=== PATIENT | female | born 1935 | race Caucasian/White ===

== ENCOUNTER 2016-06-25 17:46 | Inpatient (IN) | payer OTHER ==
--- NOTE | ~2016-06-25 | EKG ---
PATIENT: ALCIRA RIZVI UNIT #: [id number] Ventricular Rate: 99 BPM Atrial Rate: 99 BPM P-R Interval: 162 ms QRS Duration: 64 ms Q-T Interval: 384 ms QTC Calculation(Bezet): 492 ms P Rochelle: 42 degrees Calculated R Rochelle: 0 degrees Calculated T Rochelle: 7 degrees Diagnosis Line: Normal sinus rhythm with sinus arrhythmia Diagnosis Line: Possible Inferior infarct , age undetermined Diagnosis Line: Abnormal ECG Diagnosis Line: When compared with ECG of 26-JUN-2016 12:07, Diagnosis Line: Sinus rhythm has replaced Atrial fibrillation Diagnosis Line: Vent. rate has decreased BY 91 BPM Diagnosis Line: Borderline criteria for Inferior infarct are now Diagnosis Line: Present Diagnosis Line: ST no longer depressed in Anterolateral leads Diagnosis Line: Nonspecific T wave abnormality no longer evident Diagnosis Line: in Anterolateral leads Diagnosis Line: Confirmed by ALEX VELASQUEZ MD ([id number]) on 06/30/2016 Diagnosis Line: 6:21:05 AM INTERPRETING MD: RON MACKEY
--- NOTE | ~2016-06-25 | CO ---
Unit #: [id number] #: [id number] Patient: ALCIRA RIZVI [id number] [address] [address] [id number] I MR#: [id number] NAME: ALCIRA RIZVI. ROOM: 326 Age: 80 Sex: F Admission Date: 06/25/2016 : 1935 Attending Physician: Willa Campos M.D. Primary Care Physician: Trevon Salvador M.D. Requesting Physician: Ginette Eddy M.D. CONSULTATION REPORT REASON FOR CONSULTATION Non-STEMI and irregular heart rate. HISTORY OF PRESENT ILLNESS 80-year-old female with past medical history of hypertension, diabetes, hyperlipidemia, uterine cancer status post hysterectomy, pelvic mass, ex-smoker, CKD stage 3, admitted with symptoms of shortness of breath and cough. She states that these symptoms have been ongoing for the last three weeks, have been progressive in nature. She also states on and off palpitations. She denies any syncope, denies any chest pain, denies any fever. She states overall her appetite has decreased and she feels fatigued. Her usual functional capacity at home is very restricted and limited with only using the restroom. She follows with (1) for lung nodule. She was admitted earlier also in 2016 with non-STEMI which was deemed to be type 2 due to CKD. Her LVEF was normal, 55% at that time. Currently today in the ER, the patient was noted to have tachycardia which was irregular in nature and was deemed atrial fibrillation at that time. Also, patient's lab work came positive for elevated troponins and, therefore, cardiology consultation was sought. PAST MEDICAL HISTORY 1. CKD stage 3. 2. Uterine cancer. 3. Lung nodule. 4. Hypertension. 5. Hyperlipidemia. 6. Diabetes. PAST SURGICAL HISTORY 1. Cystoscopy with right ureteral stent in 2017. 2. Total abdominal hysterectomy. 3. Cholecystectomy. 4. Eye surgery. SOCIAL HISTORY She lives alone. Patient's son comes almost on a regular basis to take care of her. She is a former smoker. She denies any alcohol or drug abuse. She is currently Full Code. She uses a cane to help ambulate. Unit #: [id number] #: [id number] Patient: ALCIRA RIZVI FAMILY HISTORY Positive for cancer in both parents. Her mother had breast cancer and father had throat cancer. ALLERGIES No known drug allergies. HOME MEDICATIONS 1. Lisinopril 10 mg p.o. t.i.d. 2. Aspirin 81 mg p.o. daily. 3. Bumex 2 mg p.o. daily. 4. Vitamin D 1000 units daily. REVIEW OF SYSTEMS GENERAL: Positive for fatigue and decrease in appetite. CARDIOVASCULAR: Positive for tachycardia. Denies any chest pain. RESPIRATORY: Positive for shortness of breath and cough. HEENT: Denies blurry vision or decreased hearing. ABDOMEN: Denies diarrhea or constipation. Positive for nausea. NEUROLOGICAL: Denies any headache or focal neurological deficit. PSYCH: Denies delusions or hallucinations. MUSCULOSKELETAL: Denies any joint pains or joint swelling. SKIN: Denies any rash. NECK: Denies any swelling in the neck. ENDOCRINE: Denies any episodes of low blood sugar though she does not use it. Denies any recent weight change. All other 14 point review of systems is negative. DIAGNOSTIC STUDIES CARDIOVASCULAR: ECG done on 12/26/2016 reveals SVT likely multifocal atrial tachycardia with definite P waves seen. No atrial fibrillation detected. Telemetry reviewed. Also shows patient to be in sinus tachycardia with PACs. IMAGING: Chest x-ray reveals right sided pleural effusion with 7.5 cm x 4.5 cm mass in the right paratracheal region. CT of the chest shows 9.4 x 3.6 x 8.4 cm mass. Bilateral pleural effusion. Atelectasis of the right lower lobe. LABORATORY: Glucose of 224, creatinine of 3.6 which has increased from 3.8. Sodium 137, potassium 3.9, chloride is 101, bicarb is 21, BUN is 23, albumin is 2.8, total protein 6.7, alkaline phos. of 217, lipase of 11 and LDH of 218. Troponin 0.18 x2. MB is 6.7. CK is 133. Lactic acid is 2.9. ASSESSMENT AND PLAN 80-year-old female with past medical history of hypertension, diabetes, hyperlipidemia, uterine cancer, now with shortness of breath and cough with right lung mass concerning for malignancy. 1. Non-ST elevation myocardial infarction, type 2: Likely secondary to Demand and elevated creatinine. Conservative management. Will get Unit #: [id number] #: [id number] Patient: ALCIRA RIZVI 2D echocardiogram for LV function. Aspirin 81 mg p.o. daily. Agree with beta blockade 25 mg p.o. b.i.d. No invasive strategies. 2. Irregular heart rate: ECG reviewed. Likely patient's ECG is concerning for multifocal atrial tachycardia secondary to respiratory/pulmonary etiology. Patient currently in sinus tachycardia with PACs after right sided thoracentesis. No anticoagulation. Beta blockade. 3. Hypertension: Discontinue lisinopril in face of increasing creatinine and acute kidney injury. Agree with beta blockade. Would consider hydrating patient. 4. Poor prognosis. Dictated by... Sherry Morales M.D. [place]/villa TD: 06/27/2016 06:51 JOB #: [id number] CONSULTATION REPORT Page 1 of 1 X SHERRY MORALES MD X CONSULTATION REPORT
--- NOTE | ~2016-06-25 | CR72 ---
[facility] A Service of [facility] RADIOLOGY TEXT RESULTS PATIENT: ALCIRA RIZVI LOCATION: [facility] 326-01 : 37 UNIT #: [id number] AGE: [address]: Willa Campos MD SEX: F ORDER DR: [id number] [facility] [address] [place], [place] [address] [id number] I MR#: [id number] Acc #: [id number] NAME: ALCIRA RIZVI : 1935 SEX: F STUDY DATE/TIME: 07/02/2016 12:46 UNIT: [address] ROOM: [facility] STUDY DESCRIPTION: CR Chest Single View Portable Attending Physician: Willa Campos M.D. Referring Physician: Trevon Salvador M.D. Ordering Physician: Mansi Gonzales M.D. Primary Care Physician: Trevon Salvador M.D. MEDICAL IMAGING REPORT This report is preliminary unless electronic signature is present EXAM Portable chest, 07/02/2016 HISTORY Shortness of air for 2 weeks. COMPARISON Chest 06/30/2016 FINDINGS Frontal chest demonstrates near-complete opacification of the right hemithorax. This may represent a large pleural effusion. Left lung clear. No pneumothorax. Heart size and mediastinum appears stable. IMPRESSION Near-complete opacification of the right hemithorax, significantly worse since previous exam from 06/30/2016. This may represent a recurrent large right pleural effusion. There is slight shift of the mediastinum to the left. No visible pneumothorax. Dictated by... Marek Bhatti M.D. THIS IS AN ELECTRONICALLY VERIFIED REPORT Marek Bhatti M.D. at 07/03/2016 8:45 AM Griffin TD: 07/02/2016 23:55 JOB #: [id number] MEDICAL IMAGING REPORT [facility] A Service [facility] RADIOLOGY TEXT RESULTS PATIENT: ALCIRA RIZVI LOCATION: [facility] 326-01 : 37 UNIT #: [id number] AGE: [address]: Willa Campos MD SEX: F ORDER DR: Page 1 of 1 COPY
--- NOTE | ~2016-06-25 | OR ---
Unit #: [id number] #: [id number] Patient: ALCIRA RIZVI [id number] [address] [address] [id number] I MR#: [id number] NAME: ALCIRA RIZVI. ROOM: [facility] Date of Procedure: 06/29/2016 Admission Date: 06/25/2016 Surgeon: Rodolfo Bagley M.D. : 1935 Attending Physician: Willa Campos M.D. Referring Physician: Trevon Salvador M.D. Primary Care Physician: Trevon Salvador M.D. PROCEDURE OPERATIVE NOTE PREOPERATIVE DIAGNOSIS Lung mass. POSTOPERATIVE DIAGNOSIS Lung mass. PROCEDURE PERFORMED Diagnostic bronchoscopy with bronchial washing and transbronchial biopsy via Jovel needle times six biopsies. FINDINGS 1. Scattered bloody mucus secretions, mainly of the sandra and the right main bronchus. 2. Generalized thickening in the mucosa on the right side, mainly in the right main bronchus, right upper lobe and partially in the right lower lobe, concerning for underlying malignancy. ANESTHESIA MAC sedation. PROCEDURE An informed consent was obtained from the patient herself after explaining the benefits and risks of this procedure. The procedure was done in endoscopy under MAC sedation. The patient was prepped and positioned in the appropriate way. Then her throat was numbed using lidocaine spray. Then the bronchoscope was advanced through the oral cavity and advanced through the vocal cord. Lidocaine 1% was instilled and the bronchoscope was advanced through the vocal cord into the trachea and immediately the patient was noted to have some scattered bloody secretion which was lavaged. Then below the sandra 1% lidocaine was instilled and then the bronchoscope was advanced into the right main bronchus, right upper lobe, right lower lobe and right middle lobe were examined, which appeared thickened, especially the mucosa and the right upper lobe and right main bronchus, concerning for underlying malignancy. The bronchoscope was wedged at the level of the right upper lobe and washing was obtained from that lobe, which will be sent for microbiology and cytology. The bronchoscope was retracted and then readvanced into the left main bronchus and the left upper lobe, lingula and left lower lobe were examined, which appeared normal with no endobronchial lesions or excessive secretions. The bronchoscope was retracted out again to the level of the sandra and then a Jovel needle was inserted and six different biopsies were obtained from the mass across the Unit #: [id number] #: [id number] Patient: ALCIRA RIZVI sandra and right main bronchus. The bronchoscope was retracted out then. The patient tolerated her procedure well with no immediate complications. COMPLICATIONS None. BLOOD LOSS Less than 10 ml. Dictated by... Katia Aguiar TD: 06/29/2016 14:59 JOB #: [id number] PROCEDURE OPERATIVE NOTE Page 1 of 1 X RODOLFO FRANKLIN MD X PROCEDURE OPERATIVE NOTE
--- NOTE | ~2016-06-25 | CT4 ---
[facility] A Service of [facility] RADIOLOGY TEXT RESULTS PATIENT: ALCIRA RIZVI LOCATION: [facility] 326- : 37 UNIT #: [id number] AGE: [address]: Willa Campos MD SEX: F ORDER DR: [id number] [facility] [address] [place], [place] [address] [id number] I MR#: [id number] Acc #: [id number] NAME: ALCIRA RIZVI. : 1935 SEX: F STUDY DATE/TIME: 06/25/2016 20:13 UNIT: A [facility] ROOM: [facility] STUDY DESCRIPTION: CT Abd and Pelv Wo Cont Attending Physician: Ginette Eddy M.D. Referring Physician: Trevon Salvador M.D. Ordering Physician: Ginette Eddy M.D. Primary Care Physician: Trevon Salvador M.D. MEDICAL IMAGING REPORT This report is preliminary unless electronic signature is present EXAM CT abdomen and pelvis, 06/25/2016 HISTORY Pain. Short of air 1 week, diarrhea x1 day, pain x1 day abdomen and pelvis, cough, middle of back pain. TECHNIQUE CT of the abdomen and pelvis performed without administration of oral or intravascular contrast. Comparison 10/19/2015. This CT exam was performed with one or more of the following radiation dose reduction techniques: automatic exposure control, adjustment of mA and/or kV according to patient size, and iterative reconstruction. FINDINGS Please see dedicated CT of the chest for discussion of marked abnormalities above the diaphragm. Liver unremarkable. Status post cholecystectomy. No biliary ductal dilatation. The spleen, pancreas, adrenal glands unremarkable. Generalized renal cortical thinning bilaterally. Chronic perinephric fat stranding. Interval placement of a right ureteral stent. Proximal pigtail in the distal right renal pelvis. Distal stent pigtail in urinary bladder. There is some stranding in the fat adjacent to the renal pelvis on the right. Likely chronic in nature. Previously seen moderate to marked hydronephrosis and ureteral distension to level of mid pelvis is now resolved. The previously described rim-calcified abnormality in the left mid pelvis at location of surgical clips and felt to be cause for ureteral obstruction on prior examination is not clearly identified on today's study. There is some soft tissue thickening in this region with loss of fat planes between the soft tissue, vascular structures and adjacent small bowel. Exact nature of the previously seen abnormality remains unclear. The patient is status post [facility]. [facility] A Service of [facility] RADIOLOGY TEXT RESULTS PATIENT: ALCIRA RIZVI LOCATION: [facility] 326-01 : 37 UNIT #: [id number] AGE: [address]: Willa Campos MD SEX: F ORDER DR: prior hysterectomy for what is described in patients history as malignancy of the uterine lining. Treated metastatic disease in the right parker pelvis could be considered. Resolution of postoperative hematoma/seroma could be considered. At this time there is no well-defined mass lesion or fluid collection. CT PELVIS: No inguinal adenopathy. Streak artifact from right hip arthroplasty. Status post hysterectomy. No fluid collections in the pelvis. No pelvic or retroperitoneal adenopathy. The distal esophagus and stomach notable for probable very small hiatal hernia. Remainder of visualized stomach and small bowel are unremarkable. Appendix not visualized. It may be surgically absent. The colon shows uncomplicated sigmoid diverticulosis. Evidence of prior anterior midline pelvic wall incision. Small right paracentral umbilical hernia containing only fat. Atherosclerotic arterial calcifications. Degenerative changes in spine. No acute-appearing abnormality. L1 vertebral body hemangioma. No aggressive-appearing bony abnormality. IMPRESSION 1. Please see today's dedicated CT of the chest for multiple significant abnormal findings above the diaphragm. 2. In the interval from 10/19/2015 the patient has undergone stenting of the right ureter. The proximal pigtail is in the distal renal pelvis and the distal pigtail is in the urinary bladder. There are some chronic inflammatory changes in the right perinephric fat actually decreased from prior study. There is some residual stranding in the right parapelvic renal fat. No residual hydronephrosis. 3. Generalized renal cortical thinning bilaterally as on prior study. 4. Nonobstructing approximately 2 mm calculus mid to lower pole right kidney slightly more conspicuous than on prior study. 5. The lesion apparently causing ureteral obstruction on the prior examination in the mid-right renal pelvis is not well demonstrated today. On prior study it appeared to have some rim calcifications not clearly seen today. There is some loss of tissues planes between the pelvic vascular structures, pelvic musculature and adjacent loop of small bowel at this location but no well-defined mass is seen. Etiology of the prior abnormality remains unclear. The sequence of findings could reflect resolution of postoperative change from prior hysterectomy or treated metastatic disease. Please correlate with the patient's interval history. 6. Status post hysterectomy. 7. Post cholecystectomy. 8. Small right paracentral umbilical hernia containing only fat. 9. No acute abnormality in the alimentary canal is suggested. Appendix not visualized. Uncomplicated sigmoid diverticulosis. 10. Right hip arthroplasty. No acute bony abnormalities. See above. Dictated by... [facility]. [facility] A Service of [facility] RADIOLOGY TEXT RESULTS PATIENT: ALCIRA RIZVI LOCATION: [facility] 326-01 : 37 UNIT #: [id number] AGE: [address]: Willa Campos MD SEX: F ORDER DR: Oj Robles M.D. THIS IS AN ELECTRONICALLY VERIFIED REPORT Oj Robles M.D. at 06/29/2016 12:40 PM ANDREW/reji TD: 06/26/2016 03:00 JOB #: [id number] MEDICAL IMAGING REPORT Page 1 of 1 COPY
--- NOTE | ~2016-06-25 | CR72 ---
[facility] A Service of [facility] RADIOLOGY TEXT RESULTS PATIENT: ALCIRA RIZVI LOCATION: [facility] 326-01 : 37 UNIT #: [id number] AGE: [address]: Willa Campos MD SEX: F ORDER DR: [id number] [facility] [address] [facility] [place], [place] [address] [id number] I MR#: [id number] Acc #: [id number] NAME: ALCIRA RIZVI. : 1935 SEX: F STUDY DATE/TIME: 06/29/2016 16:58 UNIT: [address] ROOM: [facility] STUDY DESCRIPTION: CR Chest Single View Portable Attending Physician: Willa Campos M.D. Referring Physician: Trevon Salvador M.D. Ordering Physician: Shell Bagley M.D. Primary Care Physician: Trevon Salvador M.D. MEDICAL IMAGING REPORT This report is preliminary unless electronic signature is present EXAM Portable chest HISTORY Status post right lung biopsy. COMPARISON 06/26/2016 FINDINGS Portable view of the chest demonstrates right-sided volume loss with opacity of the lower half of the right thorax may represent a combination of pleural effusion, atelectasis and/or infiltrate. Right hilar prominence probably represents the patient's underlying primary mass. The left lung remains clear. No visible pneumothorax. Heart size within normal limits. Mild aortic atherosclerotic change. Dictated by... Mariano Mckinley M.D. THIS IS AN ELECTRONICALLY VERIFIED REPORT Mariano Mckinley M.D. at 06/30/2016 6:35 PM URIEL/orion TD: 06/29/2016 21:48 JOB #: [id number] MEDICAL IMAGING REPORT Page 1 of 1 COPY
--- NOTE | ~2016-06-25 | HP ---
Unit #: [id number] #: [id number] Patient: ALCIRA RIZVI [id number] [facility] [address]. [place], [place] [address] [id number] I MR#: [id number] NAME: ALCIRA RIZVI. ROOM: 45666 Age: 80 Sex: F Admission Date: 06/25/2016 : 1935 Attending Physician: Ginette Eddy M.D. Referring Physician: Trevon Salvador M.D. Primary Care Physician: Trevon Salvador M.D. HISTORY AND PHYSICAL CHIEF COMPLAINT Short of air. HISTORY OF PRESENT ILLNESS The patient is a 80-year-old female with past medical history of chronic kidney disease, hypertension, hyperlipidemia, diabetes, uterine cancer, pelvic mass, right UPJ obstruction, lung nodule, who presented to the emergency room for evaluation of the above. Of note, the patient was hospitalized at [facility] October 14 through October 21, 2015 for generalized weakness. She had higmy-xp-pnphzjn kidney disease as well as pyelonephritis. During the course of her hospital stay she did have an elevated troponin and was seen by Cardiology who thought that it was secondary to kidney disease. Her ejection fraction on echocardiogram was noted to be 55%. No further workup was planned regarding the cardiac issues. Additionally Dr. Ambrosio of nephrology saw the patient. She underwent CT of the abdomen and pelvis that showed a possible pelvic mass and renal mass. She was seen in consultation by Urology (Dr. Toribio). She underwent cystoscopy with right ureteral stent placement. She was also seen in consultation by Dr. Jimenez regarding the pelvic mass and lung nodule. She per the discharge summary was told to follow up with Dr. Jimenez, Dr. Toribio and Dr. Bagley. The patient states that she saw Dr. Jimenez one time. She did not have a PET CT. She has also seen Dr. Toribio in followup. Per [facility] records she had cystoscopy with right stent change on April 14, 2016. She has also seen Dr. Bagley of nephrology. The patient states that she has had a one-week history of increasing shortness of breath and nonproductive cough. She denies any fever, no chest pain. She has had decreased appetite but no vomiting. She had loose stool today but no abdominal pain. She denies any urinary symptoms. Upon arrival in the emergency department the patient's temperature was 97.7, pulse 96, blood pressure 103/60, oxygen saturation was 97% on 3 L. A chest x-ray was done and showed a large mass involving the right lung. Laboratory is notable for BUN and creatinine of 75 and 2.8 respectively, bicarbonate is 13, anion gap 17, alkaline phosphatase 244, white blood cell count 28.3, lactic acid 2.2. She was given Rocephin and azithromycin in the emergency department. She is being admitted to [facility] for evaluation and further treatment. PAST MEDICAL HISTORY 1. Admission to [facility] October 14 through October Unit #: [id number] #: [id number] Patient: ALCIRA RIZVI M 2015 for rcduk-ti-irxquei kidney disease and other issues as discussed in HPI. Specifically the patient was noted to have a lung nodule as well as a pelvic mass with UPJ obstruction. She underwent right ureteral stent placement during that admission and has had stent change on April 14, 2016. 2. History of uterine cancer in 2000. She underwent total hysterectomy as well as radiation treatment. She did not have chemotherapy. 3. Lung nodule per CT of the chest dated October 17, 2015. The patient was noted to have a 1.3 x 1.1 cm indeterminate nodule in the right lung apex. Repeat chest CT in three months or PET CT was recommended. 4. History of pelvic mass (CT of the abdomen and pelvis October 19, 2015). The patient was noted to have an obstructing mass in the right hemipelvis with rim calcifications measuring 1.8 x 2.7 x 4.3 cm with jjxa-ha-asvhtfbh hydroureteronephrosis of the right kidney and ureter. This was favored to be sequelae of adhesions from prior salpingo-oophorectomy and chronic seroma or hematoma. 5. Chronic kidney disease, followed by Dr. Bagley, with a baseline creatinine of 1.6 per the discharge summary. 6. Hypertension. 7. Hyperlipidemia. 8. Diabetes. PAST SURGICAL HISTORY 1. Cystoscopy with right ureteral stent placement and recent stent change on April 14, 2016. 2. Total abdominal hysterectomy. 3. Eye surgery. 4. Cholecystectomy. SOCIAL HISTORY The patient lives alone. She is a former smoker. She states that she smoked from the time she was a teenager until the . She denies alcohol use. She walks with a cane. Her code status is a Full Code. FAMILY HISTORY Family history is notable for both parents having malignancy. Her mother had breast cancer. Her dad had throat cancer. ALLERGIES No known allergies. HOME MEDICATIONS 1. Lisinopril 10 mg daily. 2. Vitamin D 1000 units daily. 3. Aspirin 81 mg daily. 4. Bumex 2 mg daily. REVIEW OF SYSTEMS A complete review of systems is negative except as indicated in the HPI. The patient denies any urinary symptoms. She states that she has been taking her medications as prescribed but not today. She is not sure if she has had any change in her weight. She does not routinely check her blood sugars. DIAGNOSTIC STUDIES CARDIOVASCULAR: EKG shows sinus tachycardia with a rate of 105 beats per minute. Unit #: [id number] #: [id number] Patient: ALCIRA RIZVI IMAGING: Chest x-ray reviewed by me and shows a large mass in the right lung. There is also possible infiltrate in the right lower lobe and a pleural effusion. LABORATORY: Arterial blood gas shows pH of 7.236, pCO2 of 24.8, pO2 of 91 on 2 L. Troponin is less than 0.05. INR is 1.1. Lactic acid 2.2. Complete blood count notable for white blood cell count of 28.3, with 11% bands. Comprehensive metabolic panel notable for bicarb of 13, glucose 160, anion gap is 17, BUN and creatinine 75 and 2.8 respectively, AST and ALT 66 and 43 respectively, alkaline phosphatase 244, albumin is 3.2. BNP is 164. PHYSICAL EXAMINATION VITAL SIGNS: Temperature is 97.7. Pulse 96. Respirations 14. Blood pressure 103/60. Oxygen saturation is 97% on 3 L. GENERAL: The patient is a female who was awake and alert, in no acute distress. HEENT: The head is atraumatic. Mucous membranes are moist. NECK: Neck is supple. Trachea is midline. CARDIOVASCULAR: Regular rate and rhythm. LUNGS: Lungs are relatively clear to auscultation bilaterally. Breathing is mildly labored with conversation. ABDOMEN: Abdomen is soft, nontender, with bowel sounds present in all four quadrants. EXTREMITIES: Nontender with no pedal edema. NEUROLOGIC: The patient is awake and alert. She is oriented x3. She follows commands. PSYCHIATRIC: Mood and affect are normal. The patient is cooperative. SKIN: Skin is generally pale. ASSESSMENT The patient is a 80-year-old female with: 1. Lung mass concerning for malignancy. 2. Pneumonia, community acquired. Possible postobstructive pneumonia. 3. Right pleural effusion. 4. Sepsis, severe with a white blood cell count of 28.3 with 11% bands. Initial lactic acid 2.2. 5. Blkae-la-qpcuxre kidney disease. The patient's creatinine was 1.9 on April 14, 2016. It is 2.8 today. The patient does have a history of right UPJ obstruction and currently has a stent in place. 6. Anion gap metabolic acidosis with a bicarb of 13 and an anion gap of 17. 7. Transaminitis. 8. Hypertension. 9. Hypertension. 10. Hyperlipidemia. 11. Diabetes. 12. History of uterine cancer, status post hysterectomy and radiation treatment. 13. History of pelvic mass per CT of the abdomen and pelvis done October 19, 2015. 14. History of right ureteropelvic junction obstruction with ureteral stent changes in March of 2016. The patient has seen Dr. Toribio in the past. 15. Former smoker. PLAN 1. Admit to intermediate level. Unit #: [id number] #: [id number] Patient: ALCIRA RIZVI 2. Healthy heart consistent carb diet if passes bedside swallow. 3. N.p.o. after midnight for possible procedure. 4. Fall precautions. 5. Check CT of the chest, abdomen and pelvis without contrast for further evaluation of lung mass, ybhvq-ym-xwaqlmh kidney disease with history of pelvic mass and UPJ obstruction with current stent in place. 6. Consult Dr. Jimenez regarding lung mass concerning for malignancy. 7. Blood cultures x2. 8. Sputum culture and sensitivity. 9. Supplemental oxygen. 10. Procalcitonin level. 11. Rocephin and azithromycin for pneumonia pending further workup. 12. Consult Dr. Wallis regarding lung mass, pleural effusion and possible need for bronchoscopy. 13. Sepsis protocol with repeat lactic acid. 14. Check urinalysis with culture and sensitivity, 15. Bladder scan, check post-void residual. 16. Check CPK. 17. Bicarb drip to start now. 18. Repeat BMP later this evening to follow up anion gap metabolic acidosis. 19. Urine sodium, creatinine and eosinophils, 20. Strict Is and Os. 21. Consult Dr. Ambrosio regarding xpqrk-cy-kakzuvo kidney disease. 22. Hold nephrotoxic medications including lisinopril and Bumex. 23. Hemoglobin A1C. 24. Low-dose sliding-scale insulin with Accu-Cheks. 25. Serial cardiac enzymes. Repeat labs in the morning including magnesium and phosphorus. 26. SCDs for DVT prophylaxis. 27. Additional workup and consultants based on above. Regarding code status: The patient is a Full Code. Dictated by Ginette Eddy M.D. TIM/juliette TD: 06/25/2016 20:36 JOB #: [id number] HISTORY AND PHYSICAL Page 1 of 1 X Ginette Eddy MD HISTORY AND PHYSICAL
--- NOTE | ~2016-06-25 | CO ---
Unit #: [id number] #: [id number] Patient: ALCIRA RIZVI [id number] [address] [place], [place] [address] [id number] I MR#: [id number] NAME: ALCIRA RIZVI. ROOM: 326 Age: 80 Sex: F Admission Date: 06/25/2016 : 1935 Attending Physician: Willa Campos M.D. Primary Care Physician: Trevon Salvador M.D. CONSULTATION REPORT REASON FOR CONSULTATION Renal failure. HISTORY OF PRESENT ILLNESS The patient is a 80-year-old female with significant past medical history of chronic kidney disease stage 3, and mainly admitted to the hospital because of not feeling well, found to be somewhat hypotensive and started on IV fluids. The patient's blood pressure improved, and later blood pressure was running on the high side. The patient's echocardiogram did show ejection fraction of 55% last time, but also chest x-ray showed that the patient has a tumor. The patient likely has a significant lung mass in the right lung. Her creatinine that was 2.4 at the time of admission, slowly has increased to 3.8 this morning. The patient was extremely acidotic with bicarb level of 13 and she is on bicarbonate based fluids, which is helping and bicarbonate level is better. The patient's lactic acid level was high, which is slightly better this morning. The patient has no urine output overnight. Phosphorus level found to be extremely high at 6.8, and the patient's albumin level dropped. Repeat lactate level is 2.9. Procalcitonin level also found to be on the high side. When I saw the patient, she started getting some short of breath. PAST MEDICAL HISTORY Significant for acute on chronic kidney disease; also history of uterine cancer; history of lung nodule on a CT chest, now has a lung mass; history of pelvic mass in the past; and also had some hydronephrosis in the past; history of chronic kidney disease, baseline creatinine of 1.6; history of diabetes mellitus. PAST SURGICAL HISTORY Significant for recent cystoscopy with ureteral stent placement. SOCIAL HISTORY The patient lives alone. She is a former smoker. FAMILY HISTORY Significant for both parents having some kind of a cancer, likely father had throat cancer. HOME MEDICATIONS Include lisinopril and Bumex. REVIEW OF SYSTEMS Already explained in the history of present illness. Unit #: [id number] #: [id number] Patient: ALCIRA RIZVI DIAGNOSTIC STUDIES IMAGING STUDIES: Diagnostic studies and labs showed that the patient has a large mass in the right lung. Abdominal CAT scan did not show any acute problem, but there were no hydronephrosis or hydroureter. LABORATORY RESULTS: Labs showed creatinine has increased to 3.8. Bicarb was 13, it has improved to 20. Lactic acid level is still on the high side. PHYSICAL EXAMINATION GENERAL: The patient is an elderly female, seems somewhat short of breath. VITAL SIGNS: Blood pressure is 120/60, pulse is 96, respiratory rate 14, temperature 97.7. HEAD AND NECK: Pupils are reactive to light. Extraocular movements are intact. Mucous membrane moist. NECK: Supple. No JVD. CHEST: The patient has bilateral air entry with some crackles right greater than left. HEART: Regular rate and rhythm. No murmur. No gallop. ABDOMEN: Soft and nontender. EXTREMITIES: No clubbing, cyanosis, no edema. NEUROLOGIC: Grossly nonfocal. ASSESSMENT AND PLAN 1. Acute kidney injury. 2. Chronic kidney disease, stage 3. 3. Sepsis with increased lactic acid level. 4. Hypertension. 5. Diabetes mellitus. 6. New diagnosis of right lung mass. DISCUSSION At this time, the patient's acute kidney injury is likely related to hemodynamic instability in the presence of the ARBEN inhibitor and some volume depletion. I agree with IV fluid that was given overnight, but now the patient is more short of breath. May be developing some crackles in the lungs or pulmonary edema. IV fluid rate was decreased. Follow up with the urine studies. If the patient has significant acute tubular necrosis, the patient may need a renal replacement therapy at this time. Discussed with the patient in detail regarding that. Follow up with a repeat labs later today and tomorrow morning. Follow up with electrolytes closely. Thank you for letting me participate in taking care of this patient. Dictated byThiago. Calixto Ambrosio M.D. MERRY/shilo TD: 06/27/2016 05:08 JOB #: [id number] Unit #: [id number] #: [id number] Patient: ALCIRA RIZVI CONSULTATION REPORT Page 1 of 1 X Calixto Ambrosio MD CONSULTATION REPORT
--- NOTE | ~2016-06-25 | CO ---
Unit #: [id number] #: [id number] Patient: ALCIRA RIZVI [id number] [address] [address] [id number] I MR#: [id number] NAME: ALCIRA RIZVI. ROOM: 326 Age: 80 Sex: F Admission Date: 06/25/2016 : 1935 Attending Physician: Willa Campos M.D. Primary Care Physician: Trevon Salvador M.D. CONSULTATION REPORT REASON FOR CONSULTATION Lung mass and pleural effusion. CHIEF COMPLAINT Shortness of breath. HISTORY OF PRESENT ILLNESS A 80-year-old female with past medical history of chronic kidney disease, hypertension, dyslipidemia, diabetes, uterine cancer, pelvic mass, right ureteral stent, lung nodule who presented to the emergency room with a complaint of shortness of breath. CT chest showed effusion and a lung mass. I am seeing the patient at bedside currently in rapid atrial fibrillation, complaining of shortness of breath. REVIEW OF SYSTEMS Positive for shortness of breath. No edema. No cyanosis. No jaundice. The rest are per history of present illness. Denies any chest pain. PAST MEDICAL HISTORY As described above. SOCIAL HISTORY Ex-smoker. No alcohol. No drug abuse. FAMILY HISTORY Positive for malignancy, both parents. Her dad has throat cancer. Mother has breast cancer. PAST SURGICAL HISTORY 1. Cystoscopy. 2. Abdominal hysterectomy. 3. Eye surgery. 4. Cholecystectomy. MEDICATIONS 1. Lisinopril. 2. Vitamin. 3. Aspirin. 4. Bumex. PHYSICAL EXAMINATION VITAL SIGNS: Currently, her heart rate is 200, respirations 20, blood pressure is 153/83, temperature 97. NEUROLOGIC: Awake, alert, oriented. No neuro deficit. Unit #: [id number] #: [id number] Patient: ALCIRA RIZVI HEENT: PERRLA plus 1. NECK: Supple. No JVD. CHEST: Bilateral air entry. Bilateral mild rhonchi. GASTROINTESTINAL: Nontender, soft. Bowel sounds positive. EXTREMITIES: No edema. SKIN: No rash. No ulcer. LYMPHATIC: No lymphadenopathy. DIAGNOSTIC STUDIES LABORATORY: Her troponin is 0.18. Creatinine is 3.8. Her lactic acid is 2.9. Her white count is 32, hemoglobin 11, hematocrit 36, platelet count 275,000. IMAGING: CT chest has been reported as suprahilar upper right paramediastinal region mass. Malignant neoplasm is favored and right-sided pleural effusion as well. ASSESSMENT 1. Acute hypoxic respiratory failure. 2. Rapid atrial fibrillation. 3. Lung mass. 4. Underlying chronic obstructive pulmonary disease. 5. Ex-smoker. 6. Right-sided pleural effusion. PLAN At this point, plan is to continue patient on oxygen, bronchodilator, broad-spectrum IV antibiotics already started. Follow culture. Patient needs right-sided thoracentesis and once her cardiac status is stable, she definitely will need bronchoscopy with biopsy. Hopefully, cytology on the pleural fluid may show up something. Will discuss with the patient and family. Overall long-term prognosis is very poor. Will start her on IV steroids as well. Please see orders for detailed plan. I would like to thank Dr. Ginette Eddy for the kind consideration to involve me in taking care of this patient. Dictated by... Katia Velásquez TD: 06/26/2016 13:36 JOB #: [id number] CONSULTATION REPORT Page 1 of 1 X Rocio Wallis MD X CONSULTATION REPORT
--- NOTE | ~2016-06-25 | CR72 ---
[facility] A Service of [facility] RADIOLOGY TEXT RESULTS PATIENT: ALCIRA RIZVI LOCATION: [facility] 326-01 : 37 UNIT #: [id number] AGE: [address]: Willa Campos MD SEX: F ORDER DR: [id number] [facility] [address] [place], [place] [address] [id number] MR#: [id number] Acc #: [id number] NAME: ALCIRA RIZVI. : 1935 SEX: F STUDY DATE/TIME: 06/25/2016 17:59 UNIT: [facility] ROOM: STUDY DESCRIPTION: CR Chest Single View Portable Attending Physician: Dawit Mccormack D.O. Referring Physician: Trevon Salvador M.D. Ordering Physician: Dawit Mccormack D.O. Primary Care Physician: Trevon Salvador M.D. MEDICAL IMAGING REPORT This report is preliminary unless electronic signature is present EXAM Portable chest, 06/25/2016 HISTORY Chest pain and shortness of breath for 1 week worsening today. Benign essential hypertension. Smoking history for 20 years. FINDINGS The heart is normal in size. Compared with 10/17/2015, there has been interval development of a large right paratracheal mass measuring 7.5 cm x 4.6 cm highly suspicious for neoplasm. Correlation with chest CT with contrast is strongly recommended. There is poor inspiratory result and elevation of the right hemidiaphragm with infiltrate and/or atelectasis in the right lower lobe. Small right pleural effusion. Left lung is clear. IMPRESSION 1. Markedly abnormal examination demonstrating interval development of a 7.5 cm x 4.5-cm mass in the right paratracheal region compared with previous available chest radiograph 10/17/2015 highly concerning for neoplasm. Correlation with chest CT with contrast is strongly recommended. 2. Elevation right hemidiaphragm with infiltrate or atelectasis right lower lobe and small right pleural effusion. STAT * RESULT Dictated by... Omega Wahl M.D. THIS IS AN ELECTRONICALLY VERIFIED REPORT Omega Wahl M.D. at 06/26/2016 10:25 AM KRT/psc [facility] A Service of [facility] RADIOLOGY TEXT RESULTS PATIENT: ALCIRA RIZVI LOCATION: [place] [address]-01 : 37 UNIT #: [id number] AGE: [address]: Willa Campos MD SEX: F ORDER DR: TD: 06/25/2016 18:33 JOB #: [id number] MEDICAL IMAGING REPORT Page 1 of 1 COPY
--- NOTE | ~2016-06-25 | XA203 ---
[facility] A Service of [facility] & [facility] RADIOLOGY TEXT RESULTS PATIENT: ALCIRA RIZVI LOCATION: [facility] 326- : 37 UNIT #: [id number] AGE: [address]: Willa Campos MD SEX: F ORDER DR: [id number] [place] [id number] [facility] [place], [place] [address] [id number] I MR#: [id number] Acc #: [id number] NAME: ALCIRA RIZVI. : 1935 SEX: F STUDY DATE/TIME: 06/26/2016 14:15 UNIT: [address] ROOM: [facility] STUDY DESCRIPTION: XA Thoracentesis Attending Physician: Willa Campos M.D. Referring Physician: Trevon Salvador M.D. Ordering Physician: Rocio Wallis M.D. Primary Care Physician: Trevon Salvador M.D. MEDICAL IMAGING REPORT This report is preliminary unless electronic signature is present EXAM Ultrasound-guided thoracentesis. INDICATION Right pleural effusion. This was identified on the CT from June 25, 2016. PROCEDURE The risks, benefits and alternatives to the procedure were explained to the patient, and signed informed consent was obtained. The patient was placed in the upright position preliminary ultrasound was performed which demonstrated a large right pleural effusions. These images were permanently saved. The overlying skin was marked. Patient was prepped and draped in the usual sterile fashion. Time-out was performed as per protocol. Skin and subcutaneous tissues were anesthetized with buffered lidocaine. The [employer] catheter was advanced into the fluid with aspiration of bloody material. The catheter was hooked to suction tubing and there was evacuation of a total of 1300 mL of bloody material. The catheter was then removed and manual pressure was applied until hemostasis was obtained. IMPRESSION Technically successful ultrasound-guided thoracentesis with evacuation of 1300 mL of bloody material. Ultrasound was used during the procedure and permanent images were saved. Dictated by... Poonam Mendoza M.D. THIS IS AN ELECTRONICALLY VERIFIED REPORT Poonam Mendoza M.D. at 06/28/2016 12:21 PM AFF/cmm TD: 06/27/2016 10:33 [facility] A Service of [facility] & [facility] RADIOLOGY TEXT RESULTS PATIENT: ALCIRA RIZVI LOCATION: [facility] 326-01 : 37 UNIT #: [id number] AGE: [address]: Willa Campos MD SEX: F ORDER DR: JOB #: [id number] MEDICAL IMAGING REPORT Page 1 of 1 COPY
--- NOTE | ~2016-06-25 | EKG ---
PATIENT: ALCIRA RIZVI UNIT #: [id number] Ventricular Rate: 105 BPM Atrial Rate: 105 BPM P-R Interval: 164 ms QRS Duration: 68 ms Q-T Interval: 358 ms QTC Calculation(Bezet): 473 ms P Alma: 67 degrees Calculated R Al[place]: 5 degrees Calculated T Alma: 35 degrees Diagnosis Line: Sinus tachycardia Diagnosis Line: Cannot rule out Inferior infarct , age Diagnosis Line: undetermined Diagnosis Line: Pulmonary disease pattern Diagnosis Line: Abnormal ECG Diagnosis Line: When compared with ECG of 14-APR-2016 09:38, Diagnosis Line: Borderline criteria for Inferior infarct are now Diagnosis Line: Present Diagnosis Line: Nonspecific T wave abnormality has replaced Diagnosis Line: inverted T waves in Inferior leads Diagnosis Line: Confirmed by ALEX VELASQUEZ MD ([id number]) on 06/26/2016 Diagnosis Line: 10:41:23 PM INTERPRETING MD: RON MACKEY
--- NOTE | ~2016-06-25 | CR71 ---
[facility] A Service of [facility] & [facility] RADIOLOGY TEXT RESULTS PATIENT: ALCIRA RIZVI LOCATION: [facility] 326- : 37 UNIT #: [id number] AGE: [address]: Willa Campos MD SEX: F ORDER DR: [id number] [facility] [address] [facility]. [place], [place] [address] [id number] I MR#: [id number] Acc #: [id number] NAME: ALCIRA RIZVI. : 1935 SEX: F STUDY DATE/TIME: 06/26/2016 14:56 UNIT: [address] ROOM: [facility] STUDY DESCRIPTION: CR Chest Single View Attending Physician: Willa Campos M.D. Referring Physician: Trevon Salvador M.D. Ordering Physician: Poonam Mendoza M.D. Primary Care Physician: Trevon Salvador M.D. MEDICAL IMAGING REPORT This report is preliminary unless electronic signature is present EXAM Portable chest radiograph. INDICATION Evaluate for pneumothorax following right thoracentesis. FINDINGS Cardiomegaly is identified. This patient does have some persistent right pleural fluid but no pneumothorax is seen. There is thickening of the right paratracheal stripe which was also present on this patient's prior CT from June 25, 2016 and likely reflects an underlying mass lesion. There is some left basilar atelectasis. No pneumothorax is seen on the left. There is atherosclerotic involvement of the aorta. Overall lung volumes are diminished. Dictated by... Poonam Mendoza M.D. THIS IS AN ELECTRONICALLY VERIFIED REPORT Poonam Mendoza M.D. at 06/26/2016 5:09 PM AFF/tmw TD: 06/26/2016 17:01 JOB #: [id number] MEDICAL IMAGING REPORT Page 1 of 1 COPY
--- NOTE | ~2016-06-25 | CO ---
Unit #: [id number] #: [id number] Patient: ALCIRA RIZVI [id number] [address] [place], [place] [address] [id number] I MR#: [id number] NAME: ALCIRA RIZVI ROOM: 326 Age: 80 Sex: F Admission Date: 06/25/2016 : 1935 Attending Physician: Willa Campos M.D. Primary Care Physician: Trevon Salvador M.D. Requesting Physician: Trevon Salvador M.D. Consultation Date: 06/26/2016 CONSULTATION REPORT REASON FOR EVALUATION Patient with possible lung CA, please evaluate. HISTORY OF PRESENT ILLNESS This is a 80-year-old lady who we saw in October of last year. The consult is dictated on the chart. At that time, she had a pulmonary nodule 1.3 cm, and we had asked for her to come see us in the office which she did. That was October, and then we wanted a CT scan to be repeated in three months plus possible PET scan. The patient states that she was too ill to come. The daughter knew about the followup request in January of last year and did not come. She comes now with evidence of progressive disease. Today, on questioning she states that she has shortness of breath even at rest plus arthritis, joint pains, and cough. Patient has a long history of hypertension, diabetes, hyperlipidemia, and smoking. She presented to this facility with pulmonary nodule right apex and now has a very large mass with possible pneumonia and underlying mass in the same area. Today, on questioning she just increasing shortness of breath. PAST MEDICAL HISTORY 1. Uterine cancer many, many years ago, and has been in remission. 2. 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 Please see the chart for further details. FAMILY HISTORY Negative for cluster of cancers. SOCIAL HISTORY Currently, she is a reformed smoker. No alcohol usage. She has a supportive son and daughter. CHRONIC MEDICATIONS 1. Lisinopril. 2. Lasix. ALLERGIES No known allergies. REVIEW OF SYSTEMS Mainly tiredness, increasing shortness of breath, and cough. No dizziness, no chest pain, and no hemoptysis. Sputum production is high with yellow-greenish sputum. Appetite is poor. Weight is difficult to say, but she states she has lost some weight. Otherwise, six or eight systems were within normal limits. Unit #: [id number] #: [id number] Patient: ALCIRA RIZVI PHYSICAL EXAMINATION GENERAL: Looks older than stated age. LYMPHATICS: No supraclavicular, axillary, or groin nodes. LUNGS: Bilateral crackles and mild wheeze. CARDIOVASCULAR: Distant S1 and S2. ABDOMEN: Diffuse tenderness. CENTRAL NERVOUS SYSTEM: Grossly intact. PELVIC/BREASTS: Not performed. DIAGNOSTIC STUDIES LABORATORY: BUN 84, creatinine 3.1, glucose 266, sodium 139, potassium 3.8, chloride 102, and CO2 of 25. Pro time 12 and INR of 1.1. Hemoglobin 9.2, hematocrit 29, white count 17.2, and platelets 185,000. IMAGING: We went ahead and reviewed the CT of the chest with contrast and discussed the results with the patient. The daughter was not present. It is essentially a very complex study, but there is a right-sided suprahilar upper right viktoria-mediastinal region mass measuring 9.4 cm x 3.6 x 8.4, and there is a pleural effusion which appears to be significant on the right side. The left side is otherwise clear. IMPRESSION This 80-year-old lady with multisystem problems including chronic kidney disease 3 going towards chronic kidney disease 4 has a right upper lobe mass and a right-sided pleural effusion. She had a 1.3 cm nodule in October of last year and was lost to followup. PLAN Agree with tapping the fluid first for cytology, and if that is negative, then bronchoscopy and biopsy, and depending on the findings, proceed further. In the meantime, will monitor the kidney function closely and treat with Procrit if the hemoglobin goes significantly lower. Dictated by... Katia Camacho/iwona TD: 06/29/2016 20:25 JOB #: [id number] CONSULTATION REPORT Page 1 of 1 X Carlos Jimenez MD CONSULTATION REPORT
--- NOTE | ~2016-06-25 | DS ---
Unit #: [id number] #: [id number] Patient: ALCIRA RIZVI [id number] [address] [address] [id number] I MR#: [id number] NAME: ALCIRA RIZVI. ROOM: 326 Age: 80 Sex: F Admission Date: 06/25/2016 : 1935 Discharge Date: 07/03/2016 Attending Physician: Willa Campos M.D. Referring Physician: Trevon Salvador M.D. Primary Care Physician: Trevon Salvador M.D. DISCHARGE SUMMARY DISCHARGE DIAGNOSES 1. Nonsmall cell lung cancer stage IV, with pleural effusion. 2. Bilateral pleural effusions, status post thoracentesis, cytology negative. 3. Chronic obstructive pulmonary disease with exacerbation. 4. Atrial fibrillation with rapid ventricular rate. 5. Yeast urinary tract infection. 6. Acute kidney injury. 7. Chronic kidney disease stage 3. 8. Hypokalemia. 9. Hypertension. 10. Hypomagnesemia. 11. Moderate protein malnutrition. 12. Diabetes mellitus type 2, uncontrolled. 13. Postobstructive pneumonia, community acquired. 14. Transaminitis. 15. Anion gap metabolic acidosis. 16. History of uterine cancer, status post hysterectomy and radiation therapy. 17. History of pelvic mass in November 01. 18. Former smoker. CONSULTATIONS 1. Dr. Wallis. 2. Dr. Ambrosio. 3. Dr. Jimenez. PROCEDURES 1. Thoracentesis with 1.3 liters of fluid removed. 2. Bronchoscopy. DIAGNOSTIC STUDIES LABORATORY: Pleural fluid negative for infection. Glucose 127. ABG with pH of (1) , 56. Sodium 145, potassium 4.4, and creatinine 3.8. Vitamin B12 of 522. Cytology of the pleural fluid shows mesothelial cells and atypical cells highly suspicious for malignancy. IMAGING: Chest x-ray shows near complete opacification of the right hemithorax. CT scan of the chest shows right upper paramediastinal mass 9.4 cm, right lower lobe mass favored atelectasis, very large right pleural effusion present, mediastinal adenopathy present, and bilateral thinning of renal cortex present. ALLERGIES Unit #: [id number] #: [id number] Patient: ALCIRA RIZVI None. DISCHARGE MEDICATIONS 1. Lorazepam 0.5 mg sublingual solution q.4 p.r.n. anxiety. 2. Morphine concentration 10 mg-1.5 mL, 12 mg p.o. q.4 p.r.n. pain. HOSPITAL COURSE A 80-year-old admitted because of shortness of breath. Nonsmall cell lung cancer stage IV. Patient had bronchoscopy and thoracentesis which was highly suspicious for malignancy. The bronchoscopy showed atypical cells highly suspicious for malignancy. Patient was seen by Hematology and Pulmonary. Because of stage IV, patient has a very poor prognosis. Patient is Do Not Resuscitate, and the patient was made hospice today. Patient will be transferred to inpatient hospice. Acute hypoxic, hypercapnic respiratory failure secondary to pneumonia, COPD, and lung mass. Currently, she is very tachypneic. She did receive DuoNeb and antibiotics. Bilateral pleural effusions, very large on the right side. Patient had thoracentesis with 1.3 liters of fluid removed which showed atypical cells. Acute COPD with exacerbation. Started on IV Solu-Medrol and DuoNebs. Atrial fibrillation with rapid ventricular rate. Patient was seen by Cardiology. Patient received Lopressor and is currently rate controlled. Pneumonia, right-sided, obstructive. Patient received Rocephin and Zithromax. Acute kidney injury. Patient was seen by Nephrology. She did have metabolic acidosis and hyperkalemia on admission with anemia. Because of very poor prognosis and continued tachypnea, dyspnea, acute kidney injury, and atrial fibrillation, the family decided for hospice care. Currently, patient is being transferred to inpatient hospice. Time taken is 40 minutes. Dictated by... Katia Carroll TD: 07/03/2016 16:32 JOB #: [id number] CC: Katia Aguiar M.D. Khurram Nazeer, M.D. Subhash P. Sheth, M.D. Unit #: [id number] #: [id number] Patient: ALCIRA RIZVI DISCHARGE SUMMARY Page 1 of 1 X Willa Campos MD DISCHARGE SUMMARY
--- NOTE | ~2016-06-25 | XA203 ---
[facility] A Service of [facility] & [facility] RADIOLOGY TEXT RESULTS PATIENT: ALCIRA RIZVI LOCATION: [facility] 326- : 37 UNIT #: [id number] AGE: [address]: Willa Campos MD SEX: F ORDER DR: [id number] [facility] [address] [facility]. [place], [place] [address] [id number] I MR#: [id number] Acc #: [id number] NAME: ALCIRA RIZVI. : 1935 SEX: F STUDY DATE/TIME: 06/30/2016 13:03 UNIT: [address] ROOM: [facility] STUDY DESCRIPTION: XA Thoracentesis Attending Physician: Willa Campos M.D. Referring Physician: Trevon Salvador M.D. Ordering Physician: Shell Bagley M.D. Primary Care Physician: Trevon Salvador M.D. MEDICAL IMAGING REPORT This report is preliminary unless electronic signature is present EXAM Ultrasound-guided right thoracentesis 06/30/2016 HISTORY Right pleural PROCEDURE Using ultrasound guidance, a skin site was selected and marked, sterilely prepped and draped and locally anesthetized. Thoracentesis was performed with a Aricent Groupeh needle catheter and a total of 1.2 L of fluid removed, and there were no complications. IMPRESSION Successful ultrasound guided right thoracentesis with removal of 1.2 L of fluid without complication. Dictated by... Vish Patricia M.D. THIS IS AN ELECTRONICALLY VERIFIED REPORT Vish Patricia M.D. at 07/04/2016 3:59 PM TEV/psc TD: 07/02/2016 22:14 JOB #: [id number] MEDICAL IMAGING REPORT Page 1 of 1 COPY
--- NOTE | ~2016-06-25 | CR71 ---
[facility] A Service of [facility] & [facility] RADIOLOGY TEXT RESULTS PATIENT: ALCIRA RIZVI LOCATION: [facility] 326- : 37 UNIT #: [id number] AGE: [address]: Willa Campos MD SEX: F ORDER DR: [id number] [facility] [address] [facility]. [place], [place] [address] [id number] I MR#: [id number] Acc #: [id number] NAME: ALCIRA RIZVI. : 1935 SEX: F STUDY DATE/TIME: 06/30/2016 14:20 UNIT: [address] ROOM: [facility] STUDY DESCRIPTION: CR Chest Single View Attending Physician: Willa Campos M.D. Referring Physician: Trevon Salvador M.D. Ordering Physician: Vish Patricia M.D. Primary Care Physician: Trevon Salvador M.D. MEDICAL IMAGING REPORT This report is preliminary unless electronic signature is present EXAM AP portable chest 06/30/2016 (1420 hours) HISTORY Postprocedure chest x-ray following 1.2 L right thoracentesis. Chest mass. TECHNIQUE AP portable upright chest x-ray. FINDINGS There is no visible pneumothorax following right side thoracentesis procedure. Small right pleural effusion remains. Persistent infiltrate and atelectasis in the right lower lung. Left lung clear. Large mass centered on the right middle and superior mediastinum is again noted, best seen on recent chest CT. Heart size normal. IMPRESSION No pneumothorax following right thoracentesis. Dictated by... Butch Lau M.D. THIS IS AN ELECTRONICALLY VERIFIED REPORT Butch Lau M.D. at 06/30/2016 10:42 PM Satish TD: 06/30/2016 18:36 JOB #: [id number] MEDICAL IMAGING REPORT Page 1 of 1 COPY
--- NOTE | ~2016-06-25 | CT57 ---
[facility] A Service of [facility] & [facility] RADIOLOGY TEXT RESULTS PATIENT: ALCIRA RIZVI LOCATION: [facility] 326-01 : 37 UNIT #: [id number] AGE: [address]: Willa Campos MD SEX: F ORDER DR: [id number] [facility] [address] [place], [place] [address] [id number] I MR#: [id number] Acc #: [id number] NAME: ALCIRA RIZVI. : 1935 SEX: F STUDY DATE/TIME: 06/25/2016 20:13 UNIT: [address] ROOM: [facility] STUDY DESCRIPTION: CT Chest Wo Cont Attending Physician: Ginette Eddy M.D. Referring Physician: Trevon Salvador M.D. Ordering Physician: Dawit Mccormack D.O. Primary Care Physician: Trevon Salvador M.D. MEDICAL IMAGING REPORT This report is preliminary unless electronic signature is present EXAM CT chest, 06/25/2016 HISTORY Short of air for 1 week, diarrhea x1 day. Some abdomen and pelvis pain x1 day, cough ,middle of back pain. Prior history of kidney disease, hypertension, diabetes, hysterectomy, tube and ovary removed, eye, gallbladder. TECHNIQUE CT chest performed without administration of intravenous contrast. Study is somewhat limited in the absence of intravascular contrast. Comparison 10/17/2015. Please see today's dedicated CT abdomen and pelvis as well. This CT exam was performed with one or more of the following radiation dose reduction techniques: automatic exposure control, adjustment of mA and/or kV according to patient size, and iterative reconstruction. FINDINGS The thyroid is unremarkable. No axillary adenopathy. There are enlarged mediastinal nodes. There is a 1 cm short axis upper right paratracheal node. There are enlarged pretracheal nodes measuring up to 1.2 cm short axis. There is a confluent mass lesion along the right hilum suprahilar region and superior mediastinum which measures approximately 9.4 cm in AP dimension x 3.6 cm in transverse dimension x 8.4 cm in craniocaudal extent. Along its medial aspect tissues planes are lost between the mass and the superior vena cava. There is probable encasement of the right upper lobe bronchus. There is increased soft tissue at level of the lower lobe bronchus which I favor to be a combination of adenopathy and mass lesion. This is presumed neoplastic disease. Best further evaluated with bronchoscopy. Patchy and linear densities at the periphery of the mass, and in the right upper and middle lobes probably combination of STS. [facility] A Service of [facility] RADIOLOGY TEXT RESULTS PATIENT: ALCIRA RIZVI LOCATION: [facility] 326-01 : 37 UNIT #: [id number] AGE: [address]: Willa Campos MD SEX: F ORDER DR: postobstructive pneumonitis and atelectasis. Components of lymphangitic spread of malignancy could be considered. There is fluid in the major fissure. There is a large right pleural effusion extending to the apex. Malignant effusion is a consideration. There is volume loss in the right lower lobe likely predominately atelectatic in nature. I do not see an obstructing right lower lobe bronchial or peribronchial lesion. This is probably passive atelectasis on the basis of the large effusion. The left lung is well inflated. Calcified granuloma left lung base. No suspicious nodule. There is underlying centrilobular emphysema. The heart is normal in size. There are coronary artery calcifications. Visualized portions of the liver unremarkable. Status post cholecystectomy. Spleen, pancreas, adrenal glands unremarkable. Generalized thinning of the renal cortex bilaterally. Incompletely visualized right ureteral stent with proximal pigtail in region of the right renal pelvis. Some haziness and stranding in the right renal pelvic fat. See CT abdomen and pelvis for further assessment. There is a nonobstructing incompletely visualized 2-3 mm calculus in the anterior mid-right kidney. No upper abdominal adenopathy. Esophagus, stomach, visualized colon unremarkable. The bony structures show no clearly acute abnormality. L1 vertebral body hemangioma right paracentral vertebral body. Degenerative changes. IMPRESSION 1. Abnormal examination. Please see the complete dictation above for full details. There is a confluent soft tissue density mass lesion in the right hilar, suprahilar and upper right paramediastinal region measuring 9.4 cm in AP dimension x approximately 3.6 cm transversely x approximately 8.4 cm in craniocaudal extent. Malignant neoplasm is favored as etiology. It is best further evaluated with bronchoscopy. Contrast-enhanced CT examination would be useful for better anatomic delineation if the patient is a candidate for iodinated contrast material. The mass. bears a close relationship to hilar and mediastinal structures with loss of fat plane between the mass and superior vena cava, distal right main pulmonary artery, right upper lobe pulmonary artery, and there appears to be encasement of the right upper lobe bronchus with narrowing of the right upper lobe bronchus. In association with adenopathy, there is probably partial encasement of right middle and lower lobe bronchi. 2. Peripheral to the mass lesion there are areas of patchy ground-glass density and some coarse linear densities, probably a combination of postobstructive pneumonitis and atelectasis. Components of lymphangitic spread of malignancy not excluded. 3. Atelectasis in the right lower lobe favored to be passive atelectasis secondary to a very large right pleural effusion which extends to the apex. Malignant effusion is a consideration. This fluid does appear amenable to percutaneous sampling. 4. Mediastinal adenopathy. See hospital sales representative sizes and locations in body of report. 5. There is no clear indication of contralateral left hilar adenopathy. The left lung shows no acute pulmonary disease or suspicious nodule. [facility]. [facility] A Service of [facility] RADIOLOGY TEXT RESULTS PATIENT: ALCIRA RIZVI LOCATION: [facility] 326-01 : 37 UNIT #: [id number] AGE: [address]: Willa Campos MD SEX: F ORDER DR: There is underlying emphysema. 6. Thinning of the bilateral partially visualized renal cortex. There appears to be a ureteral stent on the right. Incompletely visualized with some adjacent inflammatory change next to the partially visualized right renal pelvis. See today's dedicated CT abdomen and pelvis for further assessment. Incompletely visualized 2-3 mm mid-right renal calculus. 7. No clear indication of metastatic disease in the upper abdomen. 8. Spinal degenerative changes but no acute-appearing bony abnormality. No aggressive osseous lesion suggested. Dictated by... Oj oRbles M.D. THIS IS AN ELECTRONICALLY VERIFIED REPORT Oj Robles M.D. at 06/29/2016 12:40 PM ANDREW/reji TD: 06/26/2016 01:57 JOB #: [id number] MEDICAL IMAGING REPORT Page 1 of 1 COPY
--- NOTE | ~2016-06-25 | EKG ---
PATIENT: ALCIRA RIZVI UNIT #: [id number] Ventricular Rate: 190 BPM Atrial Rate: 202 BPM QRS Duration: 62 ms Q-T Interval: 224 ms QTC Calculation(Bezet): 398 ms Calculated R [place]: 33 degrees Calculated T [place]: -125 degrees Diagnosis Line: Atrial fibrillation with rapid ventricular Diagnosis Line: response Diagnosis Line: Low voltage QRS Diagnosis Line: ST depression, consider subendocardial injury Diagnosis Line: Nonspecific T wave abnormality Diagnosis Line: Abnormal ECG Diagnosis Line: When compared with ECG of 25-JUN-2016 17:52, Diagnosis Line: (unconfirmed) Diagnosis Line: Significant changes have occurred Diagnosis Line: Confirmed by ALEX VELASQUEZ MD ([id number]) on 06/26/2016 Diagnosis Line: 11:03:07 PM INTERPRETING MD: RON MACKEY
--- NOTE | ~2016-06-25 | EKG ---
PATIENT: ALCIRA RIZVI UNIT #: [id number] Ventricular Rate: 93 BPM Atrial Rate: 93 BPM P-R Interval: 146 ms QRS Duration: 74 ms Q-T Interval: 432 ms QTC Calculation(Bezet): 537 ms P [place]: 54 degrees Calculated R [place]: 10 degrees Calculated T [place]: 4 degrees Diagnosis Line: Sinus rhythm with Premature atrial complexes with Diagnosis Line: Aberrant conduction Diagnosis Line: Prolonged QT Diagnosis Line: Abnormal ECG Diagnosis Line: When compared with ECG of 29-JUN-2016 17:12, Diagnosis Line: Aberrant conduction is now Present Diagnosis Line: Borderline criteria for Inferior infarct are no Diagnosis Line: longer Present Diagnosis Line: Confirmed by MARIBEL MACKEY, LUDIVINA ([id number]) on Diagnosis Line: 07/01/2016 4:46:44 PM INTERPRETING MD: SEVEN
[~2016-06-25 17:46] MED LIST: AVAPRO300 M1 PO; CARTIA PO; CRESTOR PO; LASIX PO; LISINOPRIL10 MG PO; LISINOPRIL30 MG PO; PIOGLITAZONE-M1 EAC1 PO; TRAMADOL HCL50 M1 PO
[2016-06-25 17:59] LABS: ARTERIAL BLD GAS O2 SATURATION 22.4 % (90.0-100.0); ARTERIAL BLOOD GAS CARBOXY HB 0.6 %sat (0.0-9.0); ARTERIAL BLOOD GAS HCO3 14.6 mmol/L; ARTERIAL BLOOD GAS MET HB 0.5 %sat (0.0-2.0); ARTERIAL BLOOD GAS PCO2 39.2 mmHg (35.0-45.0)
[2016-06-25 18:01] LABS: ARTERIAL BLOOD GAS PO2 18.5 mmHg (80.0-100)
[2016-06-25 18:02] LABS: ARTERIAL DRAW? NO
[2016-06-25 18:20] LABS: ARTERIAL BLD GAS O2 SATURATION 95.2 % (90.0-100.0); ARTERIAL BLOOD GAS CARBOXY HB 0.4 %sat (0.0-9.0); ARTERIAL BLOOD GAS HCO3 10.5 mmol/L; ARTERIAL BLOOD GAS MET HB 0.7 %sat (0.0-2.0); ARTERIAL BLOOD GAS PCO2 24.8 mmHg (35.0-45.0); ARTERIAL BLOOD GAS pH 7.236 (7.350-7.450)
[2016-06-25 18:21] LABS: ARTERIAL BLOOD GAS ALLEN TEST NORMAL; ARTERIAL BLOOD GAS ART SITE RIGHT RADIAL; ARTERIAL BLOOD GAS DELIVERY NASAL CANNULA; ARTERIAL DRAW? YES
[2016-06-25 18:27] LABS: BASOPHIL# 0.1 X10e3 (0-0.3); BASOPHIL% 0.3 % (0-2.5); EOSINOPHIL# 0.1 X10e3 (0-0.7); EOSINOPHIL% 0.4 % (0.0-7.0); HEMOGLOBIN 11.9 gm/dL (12.0-16.0); LYMPHOCYTE# 1.3 X10e3 (1.0-3.5); LYMPHOCYTE% 4.7 % (17.0-45.0); MEAN CELL VOLUME 92.3 FL (83-96); MEAN CORPUSCULAR HEMOGLOBIN 28.9 PG (28-34); MEAN CORPUSCULAR HGB CONC 31.3 g/dL (30-36); MEAN PLATELET VOLUME 8.6 FL (6.5-11.5); MONOCYTE# 2.7 X10e3 (0-1.0); MONOCYTE% 9.4 % (3.0-12.0); NEUTROPHIL# 24.1 X10e3 (1.5-7.1); NEUTROPHIL% 85.2 % (40-75); PLATELET COUNT 276 X10e3 (140-420); RED BLOOD COUNT 4.12 X10e (3.90-5.30); RED CELL DISTRIBUTION WIDTH 15.1 % (11.0-15.5); WHITE BLOOD COUNT 28.3 X10e3 (4.0-10.5)
[2016-06-25 18:30] LABS: DIFF IND YES
[2016-06-25 18:33] LABS: POC - CKMB 3.8 ng/mL (0.0-7.9); POC - TROPONIN <0.05 ng/mL (<=0.05)
[2016-06-25 18:39] LABS: INR 1.1; PARTIAL THROMBOPLASTIN TIME 28.1 SECONDS (23.5-31.3)
[2016-06-25 18:52] LABS: ANISOCYTOSIS SL; PLATELET ESTIMATE NORMAL (NORMAL); POLYCHROMASIA SL
[2016-06-25 18:53] LABS: POIKILOCYTOSIS SL; VACUOLIZATION MOD
[2016-06-25 18:54] LABS: ALBUMIN SERUM 3.2 g/dL (3.5-5.0); BILIRUBIN, DIRECT 0.1 mg/dL (0.0-0.2); BILIRUBIN,INDIRECT 0.6 mg/dL (0.0-0.9); BILIRUBIN,TOTAL 0.7 mg/dL (0.2-2.0); BUN/CREATININE RATIO 26.78; CALCIUM SERUM 8.9 mg/dL (8.4-10.2); CREATININE SERUM 2.8 mg/dL (0.6-1.4); GLOM FILT RATE Estimated 15.5 mL/min (>60); POTASSIUM 4.4 mmol/L (3.5-5.1); PROTEIN TOTAL SERUM 7.2 g/dL (6.0-8.3)
[2016-06-25] MEDS ORDERED: VITAMIN D1000 UNIT PO (19:33)
[2016-06-25] MEDS ORDERED: ASPIRIN81 MG PO (19:34)
[2016-06-25] MEDS ORDERED: BUMEX2 MG PO (19:34)
[2016-06-25 21:43] LABS: PROCALCITONIN 1.47 NG/ML
[2016-06-26 01:48] LABS: ALBUMIN SERUM 2.8 g/dL (3.5-5.0); BILIRUBIN,TOTAL 0.5 mg/dL (0.2-2.0); BUN/CREATININE RATIO 22.85; CALCIUM SERUM 8.6 mg/dL (8.4-10.2); CREATININE SERUM 3.5 mg/dL (0.6-1.4); GLOM FILT RATE Estimated 11.9 mL/min (>60); MAGNESIUM 1.8 mg/dL (1.6-3.0); PHOSPHOROUS 6.8 mg/dL (2.5-4.6); POTASSIUM 4.5 mmol/L (3.5-5.1); PROTEIN TOTAL SERUM 6.5 g/dL (6.0-8.3)
[2016-06-26 04:34] LABS: HEMATOCRIT 36.3 % (35.0-45.0); HEMOGLOBIN 11.2 gm/dL (12.0-16.0); MEAN CELL VOLUME 92.6 FL (83-96); MEAN CORPUSCULAR HEMOGLOBIN 28.6 PG (28-34); MEAN CORPUSCULAR HGB CONC 30.9 g/dL (30-36); MEAN PLATELET VOLUME 8.8 FL (6.5-11.5); RED BLOOD COUNT 3.92 X10e (3.90-5.30); RED CELL DISTRIBUTION WIDTH 14.9 % (11.0-15.5); WHITE BLOOD COUNT 32.6 X10e3 (4.0-10.5)
[2016-06-26 05:50] LABS: %MB 9.9 % (0.0-4.0); MB 6.7 ng/ml
[2016-06-26 07:19] LABS: BUN/CREATININE RATIO 20.78; CALCIUM SERUM 8.5 mg/dL (8.4-10.2); CREATININE SERUM 3.8 mg/dL (0.6-1.4); GLOM FILT RATE Estimated 10.7 mL/min (>60); POTASSIUM 4.1 mmol/L (3.5-5.1)
[2016-06-26 13:31] LABS: PROTEIN TOTAL SERUM 6.7 g/dL (6.0-8.3)
[2016-06-26 13:47] LABS: ARTERIAL BLD GAS O2 SATURATION 82.8 % (90.0-100.0); ARTERIAL BLOOD GAS CARBOXY HB 0.5 %sat (0.0-9.0); ARTERIAL BLOOD GAS HCO3 21.3 mmol/L; ARTERIAL BLOOD GAS MET HB 0.6 %sat (0.0-2.0); ARTERIAL BLOOD GAS PCO2 38.7 mmHg (35.0-45.0); ARTERIAL BLOOD GAS pH 7.349 (7.350-7.450)
[2016-06-26 13:48] LABS: ARTERIAL BLOOD GAS ALLEN TEST NORMAL; ARTERIAL BLOOD GAS ART SITE RIGHT RADIAL; ARTERIAL BLOOD GAS PO2 64.2 mmHg (80.0-100); ARTERIAL DRAW? YES
[2016-06-26 15:53] LABS: BF TOTAL NUCLEATED CELL COUNT 2333 CMM (0-100); BODY FLUID APPEARANCE BLOODY; BODY FLUID RBC 217630 CMM; BODY FLUID SOURCE PLEURAL
[2016-06-26 16:11] LABS: PROTEIN, BODY FLUID 4.5 gm/dL
[2016-06-26 18:14] LABS: BUN/CREATININE RATIO 23.33; CALCIUM SERUM 8.1 mg/dL (8.4-10.2); CREATININE SERUM 3.6 mg/dL (0.6-1.4); GLOM FILT RATE Estimated 11.5 mL/min (>60); POTASSIUM 3.9 mmol/L (3.5-5.1)
[2016-06-27 06:18] LABS: MEAN CELL VOLUME 90.5 FL (83-96); MEAN CORPUSCULAR HEMOGLOBIN 28.8 PG (28-34); MEAN CORPUSCULAR HGB CONC 31.8 g/dL (30-36); MEAN PLATELET VOLUME 8.9 FL (6.5-11.5); RED BLOOD COUNT 3.21 X10e (3.90-5.30); RED CELL DISTRIBUTION WIDTH 14.5 % (11.0-15.5); WHITE BLOOD COUNT 17.2 X10e3 (4.0-10.5)
[2016-06-27 06:52] LABS: ALBUMIN SERUM 2.2 g/dL (3.5-5.0); BILIRUBIN,TOTAL 0.5 mg/dL (0.2-2.0); BUN/CREATININE RATIO 27.09; CALCIUM SERUM 7.7 mg/dL (8.4-10.2); CREATININE SERUM 3.1 mg/dL (0.6-1.4); GLOM FILT RATE Estimated 13.7 mL/min (>60); MAGNESIUM 1.7 mg/dL (1.6-3.0); PHOSPHOROUS 5.7 mg/dL (2.5-4.6); POTASSIUM 3.8 mmol/L (3.5-5.1); PROTEIN TOTAL SERUM 5.3 g/dL (6.0-8.3)
[2016-06-27 07:01] LABS: URINE APPEARANCE TURBID; URINE BILIRUBIN NEG (NEG); URINE BLOOD 3+ (NEG); URINE COLOR YELLOW; URINE GLUCOSE NEG (NEG); URINE KETONE NEG (NEG); URINE LEUKOCYTE ESTERASE 3+ (NEG); URINE NITRATE NEG (NEG); URINE PROTEIN 2+ (NEG); URINE SPECIFIC GRAVITY 1.017 (1.003-1.035); URINE UROBILINOGEN 0.2 MG/DL (NEG)
[2016-06-27 07:03] LABS: CULTURE INDICATED? YES; URBCS1 AUWI 25-50 /[HPF] (0-2); URINE BACTERIA AUWI NEG (NEGATIVE); URINE SQUAMOUS EPITHELIAL CELL OCC /[HPF]; UWBCS1 AUWI 200-300 (0-5)
[2016-06-27 07:07] LABS: HEMOGLOBIN 9.2 gm/dL (12.0-16.0)
[2016-06-27 07:14] LABS: CREATININE,RANDOM URINE 156 mg/dL; SODIUM URINE RANDOM 23 mmol/L; TOTAL PROTEIN,RANDOM URINE 92 mg/dl (<10)
[2016-06-27 07:56] LABS: URINE YEAST PRESENT
[2016-06-27 07:59] LABS: URINE SOURCE CLEAN CATCH
[2016-06-28 06:32] LABS: HEMATOCRIT 30.7 % (35.0-45.0); MEAN CELL VOLUME 88.7 FL (83-96); MEAN CORPUSCULAR HEMOGLOBIN 28.8 PG (28-34); MEAN CORPUSCULAR HGB CONC 32.5 g/dL (30-36); MEAN PLATELET VOLUME 8.6 FL (6.5-11.5); RED BLOOD COUNT 3.47 X10e (3.90-5.30); RED CELL DISTRIBUTION WIDTH 14.7 % (11.0-15.5); WHITE BLOOD COUNT 22.9 X10e3 (4.0-10.5)
[2016-06-28 07:56] LABS: ALBUMIN SERUM 2.3 g/dL (3.5-5.0); BILIRUBIN,TOTAL 0.4 mg/dL (0.2-2.0); BUN/CREATININE RATIO 34.78; CALCIUM SERUM 7.7 mg/dL (8.4-10.2); CREATININE SERUM 2.3 mg/dL (0.6-1.4); GLOM FILT RATE Estimated 19.7 mL/min (>60); MAGNESIUM 1.5 mg/dL (1.6-3.0); POTASSIUM 3.2 mmol/L (3.5-5.1); PROTEIN TOTAL SERUM 5.6 g/dL (6.0-8.3)
[2016-06-29 06:12] LABS: HEMATOCRIT 32.7 % (35.0-45.0); HEMOGLOBIN 10.3 gm/dL (12.0-16.0); MEAN CELL VOLUME 91.2 FL (83-96); MEAN CORPUSCULAR HEMOGLOBIN 28.8 PG (28-34); MEAN CORPUSCULAR HGB CONC 31.5 g/dL (30-36); MEAN PLATELET VOLUME 8.6 FL (6.5-11.5); RED BLOOD COUNT 3.59 X10e (3.90-5.30); RED CELL DISTRIBUTION WIDTH 14.5 % (11.0-15.5)
[2016-06-29 06:47] LABS: ALBUMIN SERUM 2.7 g/dL (3.5-5.0); BILIRUBIN,TOTAL 0.5 mg/dL (0.2-2.0); CALCIUM SERUM 8.3 mg/dL (8.4-10.2); CREATININE SERUM 2.2 mg/dL (0.6-1.4); GLOM FILT RATE Estimated 20.8 mL/min (>60); POTASSIUM 3.5 mmol/L (3.5-5.1)
[2016-06-29 18:43] LABS: BUN/CREATININE RATIO 36.08; CALCIUM SERUM 8.5 mg/dL (8.4-10.2); CREATININE SERUM 2.3 mg/dL (0.6-1.4); GLOM FILT RATE Estimated 19.7 mL/min (>60); POTASSIUM 3.9 mmol/L (3.5-5.1)
[2016-06-29 23:16] LABS: MAGNESIUM 2.4 mg/dL (1.6-3.0)
[2016-06-30 06:22] LABS: HEMATOCRIT 30.8 % (35.0-45.0); HEMOGLOBIN 9.6 gm/dL (12.0-16.0); MEAN CELL VOLUME 91.8 FL (83-96); MEAN CORPUSCULAR HEMOGLOBIN 28.6 PG (28-34); MEAN CORPUSCULAR HGB CONC 31.1 g/dL (30-36); MEAN PLATELET VOLUME 9.5 FL (6.5-11.5); RED BLOOD COUNT 3.35 X10e (3.90-5.30); RED CELL DISTRIBUTION WIDTH 14.9 % (11.0-15.5); WHITE BLOOD COUNT 34.4 X10e3 (4.0-10.5)
[2016-06-30 06:35] LABS: BUN/CREATININE RATIO 30.71; CALCIUM SERUM 8.6 mg/dL (8.4-10.2); CREATININE SERUM 2.8 mg/dL (0.6-1.4); GLOM FILT RATE Estimated 15.5 mL/min (>60); MAGNESIUM 2.2 mg/dL (1.6-3.0); POTASSIUM 4.1 mmol/L (3.5-5.1)
[2016-06-30 10:57] LABS: INR 1.3; PARTIAL THROMBOPLASTIN TIME 22.6 SECONDS (23.5-31.3); PROTHROMBIN TIME (PATIENT) 13.4 SECONDS (9.6-11.5)
[2016-07-01 07:26] LABS: HEMATOCRIT 30.4 % (35.0-45.0); HEMOGLOBIN 9.3 gm/dL (12.0-16.0); MEAN CELL VOLUME 92.1 FL (83-96); MEAN CORPUSCULAR HEMOGLOBIN 28.2 PG (28-34); MEAN CORPUSCULAR HGB CONC 30.6 g/dL (30-36); MEAN PLATELET VOLUME 9.2 FL (6.5-11.5); RED BLOOD COUNT 3.31 X10e (3.90-5.30); RED CELL DISTRIBUTION WIDTH 14.7 % (11.0-15.5); WHITE BLOOD COUNT 46.1 X10e3 (4.0-10.5)
[2016-07-01 08:21] LABS: ALBUMIN SERUM 2.5 g/dL (3.5-5.0); CALCIUM SERUM 8.8 mg/dL (8.4-10.2); CREATININE SERUM 3.5 mg/dL (0.6-1.4); GLOM FILT RATE Estimated 11.9 mL/min (>60); POTASSIUM 4.8 mmol/L (3.5-5.1); PROTEIN TOTAL SERUM 5.1 g/dL (6.0-8.3)
[2016-07-01 08:22] LABS: BUN/CREATININE RATIO 30.57
[2016-07-02 09:40] LABS: BASOPHIL# 0.1 X10e3 (0-0.3); BASOPHIL% 0.1 % (0-2.5); EOSINOPHIL# 0.1 X10e3 (0-0.7); EOSINOPHIL% 0.2 % (0.0-7.0); HEMATOCRIT 28.6 % (35.0-45.0); HEMOGLOBIN 8.8 gm/dL (12.0-16.0); LYMPHOCYTE# 0.9 X10e3 (1.0-3.5); LYMPHOCYTE% 1.5 % (17.0-45.0); MEAN CELL VOLUME 91.8 FL (83-96); MEAN CORPUSCULAR HEMOGLOBIN 28.2 PG (28-34); MEAN CORPUSCULAR HGB CONC 30.7 g/dL (30-36); MEAN PLATELET VOLUME 10.3 FL (6.5-11.5); MONOCYTE% 5.2 % (3.0-12.0); NEUTROPHIL# 53.8 X10e3 (1.5-7.1); PLATELET COUNT 127 X10e3 (140-420); RED BLOOD COUNT 3.12 X10e (3.90-5.30); RED CELL DISTRIBUTION WIDTH 15.2 % (11.0-15.5)
[2016-07-02 09:43] LABS: DIFF IND YES; WHITE BLOOD COUNT 57.9 X10e3 (4.0-10.5)
[2016-07-02 09:59] LABS: ANISOCYTOSIS SL; HYPOCHROMIA MOD; PLATELET ESTIMATE NORMAL (NORMAL)
[2016-07-02 10:00] LABS: STOMATOCYTE PRESENT
[2016-07-02 10:23] LABS: FERRITIN 228 ng/mL (11-307)
[2016-07-02 10:37] LABS: ALBUMIN SERUM 3.6 g/dL (3.5-5.0); BILIRUBIN,TOTAL 1.1 mg/dL (0.2-2.0); CALCIUM SERUM 9.1 mg/dL (8.4-10.2); CREATININE SERUM 3.8 mg/dL (0.6-1.4); GLOM FILT RATE Estimated 10.7 mL/min (>60); POTASSIUM 4.4 mmol/L (3.5-5.1); PROTEIN TOTAL SERUM 5.8 g/dL (6.0-8.3)
[2016-07-02 10:38] LABS: BUN/CREATININE RATIO 32.36
[2016-07-02 12:39] LABS: ARTERIAL BLD GAS O2 SATURATION 85.4 % (90.0-100.0); ARTERIAL BLOOD GAS CARBOXY HB 0.8 %sat (0.0-9.0); ARTERIAL BLOOD GAS HCO3 30.1 mmol/L; ARTERIAL BLOOD GAS MET HB 0.6 %sat (0.0-2.0); ARTERIAL BLOOD GAS PCO2 45.6 mmHg (35.0-45.0); ARTERIAL BLOOD GAS pH 7.428 (7.350-7.450)
[2016-07-02 12:40] LABS: ARTERIAL BLOOD GAS ALLEN TEST N; ARTERIAL BLOOD GAS ART SITE RIGHT RADIAL; ARTERIAL BLOOD GAS PO2 56.1 mmHg (80.0-100); ARTERIAL DRAW? YES
[2016-07-02 12:41] LABS: ARTERIAL BLOOD GAS DELIVERY VENTURI MASK
== END 2016-07-03 16:25 | disposition other institution (70) | DRG 853 ==
LOC: CED 17:46 → CEDOF 20:00 → C3A PCU 22:06
PROVIDERS: Emergency Medicine; Family Medicine; Internal Medicine; Internal Medicine Nephrology; Internal Medicine Pulmonary Disease; Nurse Practitioner; Radiology Diagnostic Radiology
PROC: 0W993ZX Drainage of Right Pleural Cavity, Percutaneous Approach, Diagnostic (ICD-10-PCS; principal; 2016-06-26)
PROC: B246YZZ Ultrasonography of Right and Left Heart using Other Contrast (ICD-10-PCS; 2016-06-27)
PROC: 0BBK8ZX Excision of Right Lung, Via Natural or Artificial Opening Endoscopic, Diagnostic (ICD-10-PCS; 2016-06-29 13:55)
PROC: 0BB48ZX Excision of Right Upper Lobe Bronchus, Via Natural or Artificial Opening Endoscopic, Diagnostic (ICD-10-PCS; 2016-06-29 13:55)
PROC: 05H333Z Insertion of Infusion Device into Right Innominate Vein, Percutaneous Approach (ICD-10-PCS; 2016-07-01)
DX: A41.9 Sepsis, unspecified organism (principal); I21.4 Non-ST elevation (NSTEMI) myocardial infarction; N17.0 Acute kidney failure with tubular necrosis; E87.2 Acidosis; J90 Pleural effusion, not elsewhere classified; J96.02 Acute respiratory failure with hypercapnia; J96.01 Acute respiratory failure with hypoxia; J18.9 Pneumonia, unspecified organism; E44.0 Moderate protein-calorie malnutrition; B37.49 Other urogenital candidiasis; C34.01 Malignant neoplasm of right main bronchus; J44.1 Chronic obstructive pulmonary disease with (acute) exacerbation; R65.20 Severe sepsis without septic shock; N18.3 Chronic kidney disease, stage 3 (moderate); I12.9 Hypertensive chronic kidney disease with stage 1 through stage 4 chronic kidney disease, or unspecified chronic kidney disease; E11.65 Type 2 diabetes mellitus with hyperglycemia; E78.5 Hyperlipidemia, unspecified; I25.2 Old myocardial infarction; Z90.710 Acquired absence of both cervix and uterus; Z90.49 Acquired absence of other specified parts of digestive tract; Z87.891 Personal history of nicotine dependence; I48.91 Unspecified atrial fibrillation; E87.6 Hypokalemia; E83.42 Hypomagnesemia; E83.39 Other disorders of phosphorus metabolism; Z51.5 Encounter for palliative care
CPT/HCPCS: 36415; 36600; 71010; 71250; 74176; 80048; 80053; 80076; 81003; 82308; 82550; 82553; 82570; 82607; 82728; 82803; 82947; 83036; 83540; 83550; 83605; 83615; 83735; 83880; 84100; 84132; 84155; 84156; 84157; 84300; 84484; 85025; 85027; 85610; 85730; 87040; 87070; 87086; 87088; 87102; 87116; 87205; 87206; 88108; 88305; 88341; 88342; 89051; 89190; 93005; 93306; 94640; 94660; 94760; 96365; 99285; J0171; J0456; J0696; J0885; J1630; J1815; J1940; J2060; J2270; J2920; J2930; J3475; J3490; J7060; P9047